=== PATIENT | female | born 1960 | race Caucasian/White ===

== ENCOUNTER 2025-04-20 13:39 | Outpatient (REF) | payer OTHER, SELFPAY ==
[2025-04-20 22:07] LABS: Hemoglobin A1C 5.6 % (<5.7)
[2025-04-20 22:15] LABS: Cholesterol 268 mg/dL (<200); HDL Cholesterol 77 mg/dL (>40)
== END 2025-04-20 13:40 | disposition home or self-care (01) ==
LOC: NCHCN 13:39
PROVIDERS: Visit Provider Family Medicine
DX: R73.03 Prediabetes (principal)
CPT/HCPCS: 80061; 83036